=== PATIENT | male | born 1960 | race African-American/Black ===

== ENCOUNTER 2018-10-13 12:06 | Emergency (ER) | payer MEDICARE, MEDICAID ==
[~2018-10-13] VITALS: Ht 190.5 cm; Wt 106.6 kg
[2018-10-13] VITALS (9 sets, daily range): BP systolic 160–177; BP diastolic 102–114
[~2018-10-13 12:06] MED LIST: ZYPREXA2.5 MG ORAL
[2018-10-13] MEDS ORDERED: UNOBMED (12:13)
[2018-10-13] MEDS ORDERED: Haloperidol 5mg/ml Inj ONE (12:57)
[2018-10-13] MEDS ORDERED: LORazepam Inj 2mg/ml 1ml ONE (12:57)
[2018-10-13] MEDS ORDERED: LORazepam Inj 2mg/ml 1ml IM ONE (13:00)
[2018-10-13] MEDS ORDERED: Haloperidol 5mg/ml Inj IM ONE (13:00)
--- NOTE | 2018-10-13 14:14 | Diagnostic Imaging Report ---
Indication: Altered mental status Technique: Continuous helical CT scanning of the head was performed without intravenous contrast material. Axial and coronal 5 mm sections were generated. Radiation dose was minimized using automated exposure control Dose: Total Dose Length Product - DLP 1396.[address] Dose Index - CTDIvol(s) 70.38 mGy. Comparison: none Findings: The ventricular system is normal in size and configuration. There is no shift of midline structures. No abnormal extra-axial fluid collections are noted. There is no evidence of intracerebral bleeding. No other abnormal high or low density areas are noted within the brain. Impression: Normal CT scan of the head without contrast material. The CT scanner at [facility] is accredited by the [employer] and the scans are performed using protocols designed to limit radiation exposure to as low as reasonably achievable to attain images of sufficient resolution adequate for diagnostic evaluation.
[2018-10-13 14:56] LABS: EOSINOPHILS % (AUTO) 0.1 % (0.0-3.0); HEMOGLOBIN 14.5 G/DL (14.2-18.0); LYMPHOCYTES % (AUTO) 14.4 % (20.0-45.0); MEAN CORPUSCULAR VOLUME 83 FL (80-99); MONOCYTES % (AUTO) 7.6 % (1.0-10.0); PLATELET COUNT 271 K/UL (150-450); RED BLOOD COUNT 5.17 M/UL (4.70-6.10); RED CELL DISTRIBUTION WIDTH 12.4 % (11.6-14.8)
--- NOTE | 2018-10-13 14:59 | Emergency Room Report ---
History of Present Illness General Chief Complaint: Altered Level of Consciousness Source: EMS (Ludwig Solis MD) Present Illness HPI 58-year-old male presents ED for evaluation. Found for altered level of consciousness. Found on the street today. EMS states patient is lethargic and altered. Protecting airway. Upon arrival patient unable to provide any additional history at this time. Knife was found strap to patient's ankle. No signs of distress upon arrival. No other aggravating relieving factors. No other associated symptoms (Ludwig Solis MD) Allergies: Coded Allergies: No Known Allergies (Unverified , 10/13/18) Patient History Past Medical History: none Past Surgical History: none Pertinent Family History: none Social History: Denies: smoking, alcohol use, drug use Immunizations: UTD Reviewed Nursing Documentation: PMH: Agreed; PSxH: Agreed (Ludwig Solis MD) Nursing Documentation-PMH Past Medical History: No Stated History (Ludwig Solis MD) Review of Systems All Other Systems: limited (Ludwig Solis MD) Physical Exam Vital Signs Date Time Temp Pulse Resp B/P (MAP) Pulse Ox O2 Delivery O2 Flow Rate FiO2 10/13/18 12:01 98.2 102 14 176/111 96 Room Air Sp02 EP Interpretation: reviewed, normal General Appearance: other - agitated Head: normocephalic Eyes: bilateral eye normal inspection, bilateral eye PERRL ENT: normal ENT inspection Neck: normal inspection Respiratory: chest non-tender, lungs clear, normal breath sounds, speaking full sentences Cardiovascular #1: regular rate, rhythm, no edema Gastrointestinal: normal inspection Rectal: deferred Genitourinary: no CVA tenderness Musculoskeletal: normal inspection Neurologic: other - agitated Psychiatric: other - agitated Skin: normal inspection Lymphatic: normal inspection (Ludwig Solis MD) Medical Decision Making Restraint Attestation ILudwig MD, have personally evaluated this patient. Laboratory tests have been reviewed and addressed accordingly. The patient is deemed to present a danger to themselves and/or others. This is based on the exam, history (provided by patient, EMS/[facility] and/or family) and observed or reported behavior. Attempts for non-invasive measures have been considered and/or attempted, however, have been futile. It is in the best interest of the nursing staff, the patient, and others involved in this patient's care that behavioral restraints be applied. Patient evaluation reveals the following: (Ludwig Solis MD) Diagnostic Impression: Primary Impression: Drug abuse Additional Impression: Altered level of consciousness Labs Test 10/13/18 14:00 10/13/18 14:35 Urine Opiates Screen Negative (NEGATIVE) Urine Barbiturates Screen Negative (NEGATIVE) Phencyclidine (PCP) Screen Positive (NEGATIVE) Urine Amphetamines Screen Negative (NEGATIVE) Urine Benzodiazepines Screen Negative (NEGATIVE) Urine Cocaine Screen Negative (NEGATIVE) Urine Marijuana (THC) Screen Negative (NEGATIVE) White Blood Count 8.0 K/UL (4.8-10.8) Red Blood Count 5.17 M/UL (4.70-6.10) Hemoglobin 14.5 G/DL (14.2-18.0) Hematocrit 43.0 % (42.0-52.0) Mean Corpuscular Volume 83 FL (80-99) Mean Corpuscular Hemoglobin 28.1 PG (27.0-31.0) Mean Corpuscular Hemoglobin Concent 33.8 G/DL (32.0-36.0) Red Cell Distribution Width 12.4 % (11.6-14.8) Platelet Count 271 K/UL (150-450) Mean Platelet Volume 6.1 FL (6.5-10.1) Neutrophils (%) (Auto) 77.0 % (45.0-75.0) Lymphocytes (%) (Auto) 14.4 % (20.0-45.0) Monocytes (%) (Auto) 7.6 % (1.0-10.0) Eosinophils (%) (Auto) 0.1 % (0.0-3.0) Basophils (%) (Auto) 1.0 % (0.0-2.0) (Ludwig Solis MD) ER Course This patient was signed out to me from Dr. Solis. He was pending lab workup. The patient had presented high and intoxicated on PCP and then was sedated here in the emergency department. The patient was allowed to sober up in the emergency department and was able to ambulate and articulate desire to go home. The patient was clinically sober at the time of discharge. No acute emergency medical condition is identified. The patient was educated on the dangers of alcohol intoxication and drug abuse. The patient was given a list of the local rehabilitation clinics. Laboratory Tests Test 10/13/18 14:00 10/13/18 14:35 Urine Opiates Screen Negative (NEGATIVE) Urine Barbiturates Screen Negative (NEGATIVE) Phencyclidine (PCP) Screen Positive (NEGATIVE) H Urine Amphetamines Screen Negative (NEGATIVE) Urine Benzodiazepines Screen Negative (NEGATIVE) Urine Cocaine Screen Negative (NEGATIVE) Urine Marijuana (THC) Screen Negative (NEGATIVE) White Blood Count 8.0 K/UL (4.8-10.8) Red Blood Count 5.17 M/UL (4.70-6.10) Hemoglobin 14.5 G/DL (14.2-18.0) Hematocrit 43.0 % (42.0-52.0) Mean Corpuscular Volume 83 FL (80-99) Mean Corpuscular Hemoglobin 28.1 PG (27.0-31.0) Mean Corpuscular Hemoglobin Concent 33.8 G/DL (32.0-36.0) Red Cell Distribution Width 12.4 % (11.6-14.8) Platelet Count 271 K/UL (150-450) Mean Platelet Volume 6.1 FL (6.5-10.1) L Neutrophils (%) (Auto) 77.0 % (45.0-75.0) H Lymphocytes (%) (Auto) 14.4 % (20.0-45.0) L Monocytes (%) (Auto) 7.6 % (1.0-10.0) Eosinophils (%) (Auto) 0.1 % (0.0-3.0) Basophils (%) (Auto) 1.0 % (0.0-2.0) Sodium Level 139 MMOL/L (136-145) Potassium Level 3.6 MMOL/L (3.5-5.1) Chloride Level 105 MMOL/L (98-107) Carbon Dioxide Level 24 MMOL/L (21-32) Anion Gap 10 mmol/L (5-15) Blood Urea Nitrogen 24 mg/dL (7-18) H Creatinine 1.2 MG/DL (0.55-1.30) Estimate Glomerular Filtration Rate > 60 mL/min (>60) Glucose Level 126 MG/DL (74-106) H Calcium Level 9.1 MG/DL (8.5-10.1) Total Bilirubin 0.4 MG/DL (0.2-1.0) Aspartate Amino Transferase (AST) 26 U/L (15-37) Alanine Aminotransferase (ALT) 47 U/L (12-78) Alkaline Phosphatase 86 U/L (46-116) Total Protein 8.5 G/DL (6.4-8.2) H Albumin 3.4 G/DL (3.4-5.0) Globulin 5.1 g/dL Albumin/Globulin Ratio 0.7 (1.0-2.7) L Salicylates Level 6.6 ug/mL (2.8-20) Acetaminophen Level < 2 MCG/ML (10-30) L Serum Alcohol < 3 mg/dL [facility] EKG Diagnostic Results Rate: tachycardiac Rhythm: NSR ST Segments: no acute changes ASA given to the pt in ED: No (Ludwig Solis MD) Rhythm Strip Diag. Results EP Interpretation: yes Rhythm: NSR, no PVC's, no ectopy (Ludwig Solis MD) CT/MRI/US Diagnostic Results CT/MRI/US Diagnostic Results : Imaging Test Ordered: CT Head Impression no acute process (Ludwig Solis MD) CT/MRI/US Diagnostic Results : Imaging Test Ordered: CT head Impression No acute findings. Specifically no intracranial bleed, mass effect or edema. See official report. ([facility]) Last Vital Signs Date Time Temp Pulse Resp B/P (MAP) Pulse Ox O2 Delivery O2 Flow Rate FiO2 10/13/18 12:10 98.4 106 34 163/114 98 Room Air (Ludwig Solis MD) Referrals: [facility],REFERRING (PCP) Ludwig Solis MD Oct 13, 2018 14:59 [facility] Oct 13, 2018 16:03
[2018-10-13 15:03] LABS: ANION GAP 10 mmol/L (5-15); BLOOD UREA NITROGEN 24 mg/dL (7-18); CALCIUM 9.1 MG/DL (8.5-10.1); CARBON DIOXIDE 24 MMOL/L (21-32); CHLORIDE 105 MMOL/L (98-107); CREATININE 1.2 MG/DL (0.55-1.30); POTASSIUM 3.6 MMOL/L (3.5-5.1); SODIUM 139 MMOL/L (136-145)
[2018-10-13 15:11] LABS: ALANINE AMINOTRANSFERASE 47 U/L (12-78); ALBUMIN 3.4 G/DL (3.4-5.0); ALBUMIN/GLOBULIN RATIO 0.7 (1.0-2.7); ALKALINE PHOSPHATASE 86 U/L (46-116); ASPARTATE AMINO TRANSFERASE 26 U/L (15-37); BILIRUBIN,TOTAL 0.4 MG/DL (0.2-1.0)
== END 2018-10-13 17:00 | disposition home or self-care (01) ==
LOC: EDBD 12:06 → EMR 13:00
DX: F19.10 Other psychoactive substance abuse, uncomplicated (principal); R41.82 Altered mental status, unspecified
CPT/HCPCS: 36415; 70450; 80053; 80307; 85025; 96360; 96372; 99284; G0480; J1630; 80329